=== PATIENT | female | born 1985 | race Caucasian/White ===

== ENCOUNTER 2017-01-02 13:17 | Day surgery (SDC) | payer OTHER ==
[~2017-01-02] VITALS: Ht 165.1 cm; Wt 100.0 kg
[~2017-01-02 13:17] MED LIST: COL100L PO; IBUP-1152 PO; MULT-73 PO; PER5 PO; fentaNYL-PF 50 mCg/mL 2 mL Inj IVPUSH PRN
[2017-01-02 14:08] VITALS: BP 134/74; PULSE 63; RESP 14; O2SAT 98
[2017-01-02] MEDS ORDERED: 0.9% Sodium Chloride 1,000 ML IV ONE (14:55)
[2017-01-02 15:04] VITALS: BP 114/67; PULSE 64; RESP 14; O2SAT 96
[2017-01-02 15:13] VITALS: BP 105/60; PULSE 81; RESP 14; O2SAT 96
--- NOTE | 2017-01-02 15:22 | ENDO ---
[address] [address] ENDOSCOPY PROCEDURE PATIENT: VENKATESH FLORES : 1985 MR#: [id number] ADMIT: 01/02/2017 JOB ID: [id number] DATE OF SERVICE: 01/02/2017 PRE-PROCEDURE DIAGNOSIS: Gastroesophageal reflux disease; esophageal cancer in a first-degree relative. POST-PROCEDURE DIAGNOSIS: Gastroesophageal reflux disease; esophageal cancer in a first-degree relative. PROCEDURE PERFORMED: Upper endoscopy. SURGEON: Sara Adamson MD HISTORY OF PRESENT ILLNESS: This is a 31-year-old woman with a history of fluctuating gastroesophageal reflux disease. Her father had undergone recent esophagectomy due to esophageal cancer. For both of these reasons, upper endoscopy was indicated. FINDINGS: Normal upper endoscopy. DESCRIPTION OF PROCEDURE: The patient was brought to the endoscopy suite, and placed in left lateral decubitus position. A bite block was placed. Moderate anesthesia was induced after a preprocedural pause was performed. The upper endoscope was advanced to the esophagus, stomach, and to the proximal aspect of the third portion of the duodenum. The entire visualized duodenum was normal. The mucosa of the stomach was carefully examined in antegrade and retroflexed views, and was normal. There was a Hill grade 1 flap valve. The squamocolumnar junction was normal, without any signs of nodularity or masses. The endoscope was slowly advanced through the esophagus, which was normal. The patient tolerated the procedure well. COMPLICATIONS: None. SPECIMENS: None. ESTIMATED BLOOD LOSS: None. INSTRUMENT: Olympus [id number]-180AL MEDICATIONS: Versed 4 mg, fentanyl 75 mcg.
== END 2017-01-02 23:59 | disposition home or self-care (01) ==
LOC: END 13:17
PROVIDERS: ATTEND Surgery
DX: K21.9 Gastro-esophageal reflux disease without esophagitis (principal); K64.4 Residual hemorrhoidal skin tags; Z80.8 Family history of malignant neoplasm of other organs or systems
CPT/HCPCS: 43235; 99152; J2250; J3010; J7030